=== PATIENT | male | born 1970 | race Caucasian/White ===

== ENCOUNTER → 2016-07-09 | Outpatient (CLI) | payer MEDICAID ==
--- NOTE | 2016-07-09 17:06 | XR ---
EXAMINATION TYPE: XR KUB DATE OF EXAM: 07/09/2016 4:27 PM CLINICAL DATA: 46-year-old male with renal calculus, [facility] COMPARISON: 11/22/2015 FINDINGS: Lung bases are clear. Nonobstructive bowel gas pattern with moderate stool burden. Phleboliths within the pelvis. No definite suspicious calcification is apparent radiographically. IMPRESSION: No definite suspicious calcification is radiographically apparent. Phleboliths in the pelvis.
--- NOTE | 2016-07-10 08:07 | US ---
EXAMINATION TYPE: US kidneys/renal and bladder DATE OF EXAM: 07/09/2016 4:17 PM COMPARISON: US 2016 CLINICAL HISTORY: 46-year-old male N20.0 CALCULUS OF KIDNEY. TECHNIQUE: Multiple sonographic images of the kidneys and bladder were obtained. FINDINGS: Right Kidney: 11.4 x 5.6 x4.1 cm without hydronephrosis. Left Kidney: 11.6 x 5.8 x 4.8 cm with a 1.4 x 1.3 x 0.7 cm hyperechoic area at the medial midpole. No hydronephrosis. Partial distention of the bladder limits its evaluation. Post void bladder volume is 14.8 mL, within normal limits. Both ureteral jets are visualized. IMPRESSION: 1. Resolution of previous right hydronephrosis. No hydronephrosis on either side. 2. A 1.4 cm poorly defined echogenic area in the left medial mid pole probably represents some promin ent renal sinus fat and can be reassessed at 6 months. 3. Both ureteral jets are seen.
== END | disposition home or self-care (01) ==
LOC: RADUSWWP 15:46
PROVIDERS: ATTEND Urology
DX: N20.0 Calculus of kidney (principal)
CPT/HCPCS: 74000; 76770

== ENCOUNTER → 2016-07-20 | Outpatient (CLI) | payer MEDICAID ==
--- NOTE | 2016-07-20 08:22 | CT ---
EXAMINATION TYPE: CT abdomen pelvis wo con DATE OF EXAM: 07/20/2016 7:47 AM HISTORY: Renal colic CT DLP: 483.80 mGycm. Automated Exposure Control for Dose Reduction was Utilized. TECHNIQUE: CT scan of the abdomen and pelvis is performed without oral or IV contrast. COMPARISON: Prior CT abdomen pelvis November 27, 2015. Recent abdominal ultrasound and abdominal x-ra y July 09, 2016 FINDINGS: Within the limitations of a non-contrast study, the following observations are made. LUNG BASES: Some coronary artery calcification in the RCA distribution is redemonstrated. This is not ed marker for coronary artery disease. LIVER/GB: No significant abnormality is appreciated. PANCREAS: No significant abnormality is seen. SPLEEN: No significant abnormality is seen. ADRENALS: No significant abnormality is seen. KIDNEYS: There are 2-3 punctate 1 mm calculus right kidney, for reference coronal image 55 lower pole level and coronal image 57 mid to lower pole level. No definite left-sided renal calculi. No hydrone phrosis or obstructing renal calculi are clearly seen on today's study. No intraluminal calculi in th e bladder are seen. Scattered pelvic phleboliths are redemonstrated. BOWEL: Normal-appearing appendix from base of cecum is seen. No suspicious bowel dilatation is noted. Some scattered diverticula are redemonstrated without CT evidence for acute diverticulitis. GENITAL ORGANS: Some central zone calcifications redemonstrated in normal size prostate gland. LYMPH NODES: No greater than 1cm abdominal or pelvic lymph nodes are appreciated. OSSEOUS STRUCTURES: Minimal multilevel anterior spurring and spine is redemonstrated. OTHER: Minimal calcified plaque distal abdominal aorta is noted. IMPRESSION: Interval passage or successful treatment of right proximal ureter calculus from prior CT. No hydronephrosis or obstructing calculi seen currently. No worrisome renal mass seen on noncontrast study. There are 2-3 punctate 1 mm nonobstructing calculi scattered throughout the right kidney on c urrent study.
== END | disposition home or self-care (01) ==
LOC: RADCTMAIN 07:05
PROVIDERS: ATTEND Urology
DX: N20.0 Calculus of kidney (principal)
CPT/HCPCS: 74176

== ENCOUNTER 2017-05-26 11:45 | Emergency (ER) | payer MEDICAID ==
[2017-05-26 11:54] VITALS: RESP 18
--- NOTE | 2017-05-26 12:14 | ED ---
General Adult HPI - General Chief complaint: Extremity Problem,Nontraumatic Stated complaint: RT LEG PAIN, Hx BLOODCLOT Time Seen by Provider: 05/26/17 11:50 Source: patient, RN notes reviewed Mode of arrival: ambulatory Limitations: no limitations - History of Present Illness Initial comments: This is a 47-year-old male who presents emergency Department complaining of right calf pain. Patient states she's had clots in the past and this feels similar. Patient states been ongoing for a couple weeks. Patient states normally it swelled that is why he didn't come in right away as it never did swell but because it continues to hurt and he decided come in. Patient states he is on Coumadin but has not had level checked lately. Patient denies any other symptoms at this time. Patient denies any chest pain difficulty breathing shortness of breath. - Related Data Home Medications Medication Instructions Recorded Confirmed Warfarin [Coumadin] 10 mg PO DAILY 11/22/15 05/26/17 Zolpidem [Ambien] 10 mg PO HS PRN 11/22/15 05/26/17 amLODIPine BESYLATE/BENAZEPRIL 1 cap PO DAILY 05/26/17 05/26/17 [Lotrel 5-20 mg Capsule] Allergies Allergy/AdvReac Type Severity Reaction Status Date / Time No Known Allergies Allergy Verified 05/26/17 12:14 Review of Systems ROS Statement: Those systems with pertinent positive or pertinent negative responses have been documented in the HPI. ROS Other: All systems not noted in ROS Statement are negative. Past Medical History Past Medical History: Deep Vein Thrombosis (DVT), Hypertension History of Any Multi-Drug Resistant Organisms: None Reported Past Surgical History: Orthopedic Surgery Additional Past Surgical History / Comment(s): lithotripsy Past Psychological History: No Psychological Hx Reported Smoking Status: Current every day smoker Past Alcohol Use History: None Reported, Rare Past Drug Use History: None Reported General Exam - General Exam Comments Initial Comments: GENERAL: Patient is well-developed and well-nourished. Patient is nontoxic and well- hydrated and is in no acute distress. ENT: Neck is soft and supple. No significant lymphadenopathy is noted. Oropharynx is clear. Moist mucous membranes. Neck has full range of motion without eliciting any pain. EYES: The sclera were anicteric and conjunctiva were pink and moist. Extraocular movements were intact and pupils were equal round and reactive to light. Eyelids were unremarkable. PULMONARY: Unlabored respirations. Good breath sounds bilaterally. No audible rales rhonchi or wheezing was noted. CARDIOVASCULAR: There is a regular rate and rhythm without any murmurs gallops or rubs. ABDOMEN: Soft and nontender with normal bowel sounds. No palpable organomegaly was noted. There is no palpable pulsatile mass. SKIN: Skin is clear with no lesions or rashes and otherwise unremarkable. NEUROLOGIC: Patient is alert and oriented x3. Cranial nerves II through XII are grossly intact. Motor and sensory are also intact. Normal speech, volume and content. Symmetrical smile. Cerebellar exam grossly intact. MUSCULOSKELETAL: Normal extremities with adequate strength and full range of motion. Patient has minimal right calf pain. Patient has no swelling or edema. LYMPHATICS: No significant lymphadenopathy is noted PSYCHIATRIC: Normal psychiatric evaluation. Limitations: no limitations Course Vital Signs 05/26/17 05/26/17 05/26/17 11:50 11:54 13:23 Temperature 97.5 F L 98.2 F Pulse Rate 81 81 75 Respiratory 18 18 18 Rate Blood Pressure 163/97 154/113 131/90 O2 Sat by Pulse 99 96 96 Oximetry Medical Decision Making - Medical Decision Making Ultrasound showed no DVT. 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 Patient states he might of strained at that time. - Lab Data Lab Results 05/26/17 Range/Units 12:29 PT 23.4 H (9.0-12.0) sec INR 2.6 H (<1.2) APTT 27.5 (22.0-30.0) sec Disposition Clinical Impression: Strain of calf muscle Disposition: HOME SELF-CARE Condition: Good Instructions: Muscle Strain (ED) Referrals: Junaid Lay DO [Primary Care Provider] - 1-2 days Time of Disposition: 14:27
[2017-05-26 12:50] LABS: INR 2.6 (<1.2); Partial Thromboplastin Time 27.5 sec (22.0-30.0); Prothrombin Time 23.4 sec (9.0-12.0)
--- NOTE | 2017-05-26 13:46 | US ---
EXAMINATION TYPE: US venous doppler duplex LE RT DATE OF EXAM: 05/26/2017 12:12 PM COMPARISON: Prior US 03/31/2011 CLINICAL HISTORY: Pain right leg . Patient states he currently takes blood thinners, history of DVT SIDE PERFORMED: Right TECHNIQUE: The lower extremity deep venous system is examined utilizing real time linear array sonog anthony with graded compression, doppler sonography and color-flow sonography. VESSELS IMAGED: External Iliac Vein (EIV) Common Femoral Vein Deep Femoral Vein Greater Saphenous Vein * Femoral Vein Popliteal Vein Small Saphenous Vein * Proximal Calf Veins (* superficial vessels) Right Leg: Negative for DVT IMPRESSION: 1. Right lower extremity negative for deep venous thrombosis.
[2017-05-26 14:44] VITALS: BP 135/92; PULSE 81; TEMP 98.3
== END 2017-05-26 14:53 | disposition home or self-care (01) ==
LOC: EC 11:45
DX: S86.911A Strain of unspecified muscle(s) and tendon(s) at lower leg level, right leg, initial encounter (principal); I10 Essential (primary) hypertension; F17.200 Nicotine dependence, unspecified, uncomplicated; Z79.01 Long term (current) use of anticoagulants; Z79.899 Other long term (current) drug therapy; Z86.718 Personal history of other venous thrombosis and embolism; X58.XXXA Exposure to other specified factors, initial encounter
CPT/HCPCS: 36415; 85610; 85730; 99284

== ENCOUNTER → 2017-10-12 | Outpatient (CLI) | payer MEDICAID ==
--- NOTE | 2017-10-12 23:54 | MR ---
EXAMINATION TYPE: MR cervical spine wo con DATE OF EXAM: 10/12/2017 COMPARISON: None HISTORY: RT ARM PARESTHESIA, R CERVICAL RADICULOPATHY TECHNIQUE: Multiplanar, multisequence images of the cervical spine were acquired. The cervical vertebra have normal alignment. The disc spaces are fairly normal. There is posterior di sc herniation at C5-6 and C6-7. This is in the midline. C5-6 disc herniation is larger and the spinal canal is narrowed to 7 mm. The cervical spinal cord shows no edema. Brainstem appears intact. There is no compression fracture. There is no cervical paraspinal mass. IMPRESSION: Posterior disc herniations at C5-6 C6-7. This is worse at C5-6 with a 7 mm mild spinal stenosis.
== END | disposition home or self-care (01) ==
LOC: RADMRIMAIN 21:31
PROVIDERS: ATTEND Family Medicine
DX: M48.02 Spinal stenosis, cervical region (principal); M50.122 Cervical disc disorder at C5-C6 level with radiculopathy
CPT/HCPCS: 72141

== ENCOUNTER → 2018-01-18 | Outpatient (CLI) | payer MEDICAID ==
[2018-01-18 08:11] LABS: INR 1.1 (<1.2); Partial Thromboplastin Time 23.5 sec (22.0-30.0); Prothrombin Time 10.8 sec (9.0-12.0)
== END | disposition home or self-care (01) ==
LOC: LABWHC1 07:02
PROVIDERS: ATTEND Physical Medicine & Rehabilitation
DX: Z51.81 Encounter for therapeutic drug level monitoring (principal); Z79.01 Long term (current) use of anticoagulants
CPT/HCPCS: 36415; 85610; 85730

== ENCOUNTER → 2018-02-01 | Outpatient (CLI) | payer MEDICAID ==
[2018-02-01 07:52] LABS: INR 1.3 (<1.2); Prothrombin Time 12.4 sec (9.0-12.0)
== END | disposition home or self-care (01) ==
LOC: LABWHC1 07:29
PROVIDERS: ATTEND Physical Medicine & Rehabilitation
DX: M54.2 Cervicalgia (principal); M50.122 Cervical disc disorder at C5-C6 level with radiculopathy; M50.222 Other cervical disc displacement at C5-C6 level; M50.321 Other cervical disc degeneration at C4-C5 level; M47.22 Other spondylosis with radiculopathy, cervical region; Z79.01 Long term (current) use of anticoagulants; F17.219 Nicotine dependence, cigarettes, with unspecified nicotine-induced disorders
CPT/HCPCS: 36415; 85610

== ENCOUNTER 2019-07-29 15:56 | Emergency (ER) | payer MEDICAID ==
[2019-07-29 16:02] VITALS: BP 137/90; PULSE 83; RESP 18; TEMP 98.9
--- NOTE | 2019-07-29 16:25 | ED ---
General Adult HPI - General Chief complaint: Extremity Injury, Lower Stated complaint: L Knee Swelling Time Seen by Provider: 07/29/19 16:06 Source: patient, RN notes reviewed, old records reviewed Mode of arrival: ambulatory Limitations: no limitations - History of Present Illness Initial comments: 49-year-old male presenting with swelling on the anterior aspect of his left knee. Noted over the past 24 hours. 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 Denies fever or chills. Denies pain with ambulation. States he's noticed swelling without significant redness or warmth. He is on Coumadin with history of DVT. - Related Data Home Medications Medication Instructions Recorded Confirmed Warfarin [Coumadin] 10 mg PO DAILY 11/22/15 05/26/17 Zolpidem [Ambien] 10 mg PO HS PRN 11/22/15 05/26/17 amLODIPine BESYLATE/BENAZEPRIL 1 cap PO DAILY 05/26/17 05/26/17 [Lotrel 5-20 mg Capsule] Previous Rx's Medication Instructions Recorded methylPREDNISolone Dose Pack 4 mg PO DIRECTED #21 package 07/29/19 [Medrol Dose Pack] Allergies Allergy/AdvReac Type Severity Reaction Status Date / Time No Known Allergies Allergy Verified 07/29/19 16:02 Review of Systems ROS Statement: Those systems with pertinent positive or pertinent negative responses have been documented in the HPI. ROS Other: All systems not noted in ROS Statement are negative. Past Medical History Past Medical History: Deep Vein Thrombosis (DVT), Hypertension Additional Past Medical History / Comment(s): kidney stones History of Any Multi-Drug Resistant Organisms: None Reported Past Surgical History: Orthopedic Surgery Additional Past Surgical History / Comment(s): lithotripsy Past Psychological History: No Psychological Hx Reported Smoking Status: Current every day smoker Past Alcohol Use History: None Reported Past Drug Use History: None Reported General Exam Limitations: no limitations General appearance: alert, in no apparent distress Head exam: Present: atraumatic, normocephalic Eye exam: Present: normal appearance, PERRL ENT exam: Present: normal exam Neck exam: Present: normal inspection. Absent: tenderness, meningismus Respiratory exam: Present: normal lung sounds bilaterally. Absent: respiratory distress, wheezes, rales Cardiovascular Exam: Present: regular rate, normal rhythm Extremities exam: Present: other (Left lower extremity, distal pulses intact, there is prepatellar swelling of the left knee. No decrease in range of motion, no pain with range of motion, no joint effusion. No warmth or erythema. 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 No signs of infection. No signs of septic arthritis. Patient is on Coumadin, will be prescribed steroids, will monitor for worsening symptoms, pain with range of motion, fever, will be present with any new or worsening symptoms. Disposition Clinical Impression: Prepatellar bursitis of left knee Disposition: HOME SELF-CARE Condition: Good Instructions (If sedation given, give patient instructions): Knee Bursitis (ED) Prescriptions: methylPREDNISolone Dose Pack [Medrol Dose Pack] 4 mg PO DIRECTED #21 package Is patient prescribed a controlled substance at d/c from ED?: No Referrals: Junaid Lay DO [Primary Care Provider] - 1-2 days Time of Disposition: 16:25
== END 2019-07-29 16:30 | disposition home or self-care (01) ==
LOC: EC 15:56
DX: M70.42 Prepatellar bursitis, left knee (principal); I10 Essential (primary) hypertension; F17.200 Nicotine dependence, unspecified, uncomplicated; Z79.01 Long term (current) use of anticoagulants; Z79.899 Other long term (current) drug therapy; Z86.718 Personal history of other venous thrombosis and embolism
CPT/HCPCS: 99283

== ENCOUNTER → 2020-04-25 | Outpatient (CLI) | payer MEDICAID ==
[2020-04-25 09:40] LABS: Prothrombin Time 111.9 sec (9.0-12.0)
[2020-04-25 10:09] LABS: INR >10.0 (<1.2)
== END | disposition home or self-care (01) ==
LOC: LABWHC1 09:07
PROVIDERS: ATTEND Nurse Practitioner Adult Health
DX: I82.409 Acute embolism and thrombosis of unspecified deep veins of unspecified lower extremity (principal); D68.32 Hemorrhagic disorder due to extrinsic circulating anticoagulants
CPT/HCPCS: 36415; 85610